=== PATIENT | male | born 1995 | race Hispanic/Latino ===

== ENCOUNTER → 2017-01-06 | Day surgery (SDC) | payer OTHER ==
[~2017-01-06] VITALS: Ht 170.2 cm; Wt 67.6 kg
[~2017-01-06] MED LIST: 0.9% Sodium Chloride 1,000 ML IV SCH; OMEP20CA11 PO; Sodium Chloride LOK Flush 10 mL Syringe IV PRN; fentaNYL-PF 50 mCg/mL 2 mL Inj IVPUSH PRN
[2017-01-06 12:06] VITALS: BP 134/86; PULSE 91; RESP 14; O2SAT 99
[2017-01-06 12:38] VITALS: BP 103/61; PULSE 82; RESP 16; O2SAT 92
[2017-01-06 12:48] VITALS: BP 96/53; PULSE 78; RESP 14; O2SAT 98
[2017-01-06 12:58] VITALS: BP 115/62; PULSE 101; RESP 16; O2SAT 95
[2017-01-06 13:08] VITALS: BP 111/57; PULSE 78; RESP 16; O2SAT 98
--- NOTE | 2017-01-06 14:25 | ENDO ---
[address] [address] ENDOSCOPY PROCEDURE PATIENT: BROCK MAST : 1995 MR#: [id number] ADMIT: 01/06/2017 JOB ID: [id number] DATE OF SERVICE: 01/06/2017 TYPE OF OPERATION: Esophagogastroduodenoscopy, biopsy. PREOPERATIVE DIAGNOSIS: Dysphagia. POSTOPERATIVE DIAGNOSIS: Small hiatal hernia. ANESTHESIA: Fentanyl 150 mcg, Versed 7 mg IV administered. COMPLICATIONS: None. BLOOD LOSS: Minimal. DESCRIPTION OF PROCEDURE: After risks and benefits explained to the patient, informed consent was obtained. After anesthesia administered, upper endoscope was then inserted in mouth intubating the esophagus, stomach, second portion of duodenum. Mucosa carefully examined. After procedure was done, the scope withdrawn, procedure terminated. FINDINGS: Upon inspection of the esophagus, esophagus was normal without masses, ulcers, or lesions. Z-line located at 40 cm from the incisors. Upon entering the stomach, the stomach was also normal without masses, ulcers, or lesions. Retroflexion showed small hiatal hernia. Duodenal bulb, first and second portion were normal. Biopsies taken of the antrum, body, and distal esophagus. IMPRESSION: Small hiatal hernia. RECOMMENDATION: Await pathology results. Follow up in GI clinic as needed.
--- NOTE | 2017-01-09 11:11 | PATH ---
SURGICAL PATHOLOGY Attending Physician:Sandip Myers MD CASE STATUS: Signed Out PATIENT NAME: BROCK MAST PID: [id number] : 1995 DATE COLLECTED:01/06/2017 21:14 SPECIMEN: 1: Stomach, Antrum, Biopsy 2: Gastric, Biopsy 3: Esophagus, Biopsy 4: Esophagus, Biopsy CLINICAL HISTORY: DYSPHAGIA 1). ANTRUM BIOPSY 2). GASTRIC BODY BIOPSY 3). DISTAL ESOPHAGUS BIOPSY 4). MID ESOPHAGUS BIOPSY FINAL DIAGNOSIS: 1. Antrum Biopsy: Gastric antral mucosa with diagnostic alterations. Negative for intestinal metaplasia. Negative for Helicobacter organisms on H&E stains. Negative for dysplasia or malignancy. 2. Gastric Body Biopsy: Gastric body mucosa with no diagnostic alterations. Negative for intestinal metaplasia. Negative for Helicobacter organisms on H&E stains. Negative for dysplasia or malignancy. 3. Distal Esophagus Biopsy: Squamocolumnar mucosa with no diagnostic alterations. Negative intestinal/Kurtz's metaplasia. Negative for dysplasia and malignancy. 4. Mid Esophagus Biopsy: Squamous mucosa with no diagnostic alterations. Negative for intestinal/Kurtz's metaplasia. Negative for dysplasia or malignancy. Eosinophils are not increased. ICD10: R13.10 GROSS DESCRIPTION: Received four formalin-filled containers, each labeled with the patient' s name. 1. Received in formalin, labeled with the patient' s name and "antrum", is one fragment of ballard, soft tissue measuring 0.4 x 0.2 x 0.1 cm. The fragment is totally submitted in cassette 1A. 2. Received in formalin, labeled with the patient' s name and "gastric body biopsy", are two fragments of ballard, soft tissue ranging from 0.5 x 0.2 x 0.1 cm to 0.5 x 0.2 x 0.1 cm. The fragments are totally submitted in cassette 2A. 3. Received in formalin, labeled with the patient' s name and "distal esophagus biopsy", are two fragments of ballard, soft tissue ranging from 0.2 x 0.1 x 0.1 cm to 0.3 x 0.2 x 0.1 cm. The fragments are totally submitted in cassette 3A. 4. Received in formalin, labeled with the patient' s name and "mid esophagus biopsy", are two fragments of ballard, soft tissue ranging from 0.2 x 0.1 x 0.1 cm to 0.3 x 0.2 x 0.1 cm. The fragments are totally submitted in cassette A. 4A. [id number]) MICRO DESCRIPTION: Please see diagnosis. ICD-9 CODES: CPT CODES: 1: 48971 2: 71139 3: 04107 4: 51356 Electronically Signed Out Domi Liu MD [facility] [address], [place] [address] Technical component performed at [facility], [address], [place], [address]
== END | disposition home or self-care (01) ==
LOC: END 01:05
PROVIDERS: ATTEND Internal Medicine Gastroenterology
DX: K44.9 Diaphragmatic hernia without obstruction or gangrene (principal); K21.9 Gastro-esophageal reflux disease without esophagitis
CPT/HCPCS: 43239; G0500; J2250; J3010; J7030